=== PATIENT | female | born 1985 | race Hispanic/Latino ===

== ENCOUNTER 2018-04-24 06:57 | Day surgery (SDC) | payer BC ==
[2018-04-24] MEDS ORDERED: Lactated Ringer's 500 ML IV ONE ×2 (08:05)
[2018-04-24] MEDS ORDERED: Midazolam 2 MG/2 ML VIAL ONE (08:19)
[2018-04-24] MEDS ORDERED: Propofol 10 mg/ml Inj (20 ML) ONE (08:20)
[2018-04-24] MEDS ORDERED: Lidocaine Hydrochloride 5 ML INJ ONE (08:36)
[2018-04-24 09:03] VITALS: RESP 13; TEMP 98
[2018-04-24 09:28] VITALS: O2SAT 99
[2018-04-24 09:29] VITALS: BP 112/75; PULSE 62
== END 2018-04-24 09:40 | disposition home or self-care (01) ==
LOC: C.ENDO 06:57
PROVIDERS: ATTEND Internal Medicine Gastroenterology
DX: K44.9 Diaphragmatic hernia without obstruction or gangrene (principal); K21.0 Gastro-esophageal reflux disease with esophagitis; R13.10 Dysphagia, unspecified
CPT/HCPCS: 43239; 84703; 88305; J2250; J2704; J3010; J7120